=== PATIENT | female | born 1930 | race Caucasian/White ===

== ENCOUNTER → 2019-06-04 | Outpatient (CLI) | payer MEDICARE ==
[~2019-06-04] MED LIST: ISOVUE-370 76% 100ML VIAL (Q9967) As Ordered ONE
--- NOTE | 2019-06-04 18:09 | REPVR ---
EXAM: CT Neck With Contrast EXAM DATE/TIME: 06/04/2019 5:02 PM CLINICAL HISTORY: 89 years old, female; Neck pain; Additional info: Swelling of soft tissues of neck TECHNIQUE: Imaging protocol: Axial computed tomography images of the neck with intravenous contrast. Coronal and sagittal reformatted images were created and reviewed. Radiation optimization: All CT scans at this facility use at least one of these dose optimization techniques: automated exposure control; mA and/or kV adjustment per patient size (includes targeted exams where dose is matched to clinical indication); or iterative reconstruction. Contrast material: ISO 370; Contrast volume: 75 ml; Contrast route: IV COMPARISON: No relevant prior studies available. FINDINGS: No focal subcutaneous soft tissue swelling. Parapharyngeal and posterior nasopharynx soft tissue planes are symmetric. No asymmetric enlargement or inflammation of the pharyngeal tonsils. No evidence of odontogenic abscess Vascular structures of the neck enhance normally. No abnormally enlarged cervical chain or jugulodigastric lymph nodes. Muscles of mastication and strap muscles of the neck appear normal. Parotid and minor salivary glands are unremarkable. Floor of the mouth and tongue base soft tissues appear normal. Laryngeal structures appear normal. Thyroid gland shows no abnormality. Lung apices are normal. 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 IMPRESSION: Unremarkable contrast enhanced CT of the neck soft tissues. Electronically signed by: Daren Comer On 06/04/2019 18:08:46 PM
== END ==
LOC: M RAD 15:40
PROVIDERS: ATTEND Internal Medicine
DX: M54.2 Cervicalgia (principal); R59.1 Generalized enlarged lymph nodes
CPT/HCPCS: 70491; 86140; Q9967